=== PATIENT | male | born 1945 | race Caucasian/White ===

== ENCOUNTER 2023-03-15 09:01 | Day surgery (SDC) | payer MEDICARE, BC, SELFPAY ==
--- NOTE | ~2023-03-15 | FL_ITS ---
Fluoroscopic lumbar puncture Indication: Normal pressure hydrocephalus Risks and benefits and possible complications were discussed with the patient and the consent form was signed. Patient was placed prone on the fluoroscopy table. The back was prepped and draped in routine sterile fashion. Betadine was used as a skin antiseptic. Utilizing fluoroscopic guidance, the L3-4 level was accessed with a 22 gauge Celine spinal needle and clear CSF fluid obtained. Opening pressure was 27 cm H2O cm. 12 cc of fluid was sent for analysis. Closing pressure was 13 cm H2O. The needle was removed without immediate complications. Total fluoroscopy time: 9 seconds min FL/FL guided lumbar puncture LP Impression: Fluoroscopic lumbar puncture This procedure was performed by Sanjiv Spring PA-C and supervised by Dr. Small.
[2023-03-15 09:27] VITALS: BP 197/101; PULSE 75; RESP 16; TEMP 36.7; O2SAT 93; BMI 28.1
[2023-03-15 09:45] LABS: MANUAL DIFF FLAG NO
[2023-03-15 09:51] LABS: Basophils Percent Auto 0.2 % (0-2); Eosinophils Absolute Auto 0.1 X10*3/uL (0.0-0.4); Eosinophils Percent Auto 0.5 % (0-4); Hematocrit 54.3 % (42.0-52.0); Hemoglobin 18.2 g/dl (14.0-18.0); Imm Gran Abs Auto 0.02 X10*3/uL (0.00-0.03); Imm Gran Pct Auto 0.2 % (0.0-0.4); Lymphocytes Absolute Auto 1.2 X10*3/uL (1.2-4.9); Lymphocytes Percent Auto 12.1 % (20-40); Mean Corpuscular HGB Conc 33.5 g/dl (31.0-36.0); Mean Corpuscular Hemoglobin 29.8 pg (27.0-33.0); Mean Corpuscular Volume 88.9 fL (80.0-98.0); Monocytes Absolute Auto 0.6 X10*3/uL (0.1-1.2); Monocytes Percent Auto 6.2 % (2-11); Neutrophils Percent Auto 80.8 % (45-73); Platelet Count 308 X10*3/uL (160-400); Red Blood Count 6.11 X10*6/uL (4.60-5.80); Red Cell Distribution Width 12.5 % (11.0-16.0); White Blood Count 9.9 X10*3/uL (4.8-10.8)
[2023-03-15 10:03] LABS: Prothrombin Time 11.9 SEC (11.1-13.3)
[2023-03-15 10:06] LABS: Partial Thromboplastin Time 30.5 SEC (26.0-36.4)
[2023-03-15 11:50] VITALS: BP 210/101; PULSE 68; RESP 18; TEMP 37.2; O2SAT 94
[2023-03-15 12:10] VITALS: BP 202/103; PULSE 71; RESP 17; O2SAT 93
[2023-03-15 12:25] VITALS: BP 202/102; PULSE 69; RESP 17; O2SAT 94
[2023-03-15 12:28] LABS: CSF Appearance Clear, Colorless; CSF Tube # 1
[2023-03-15 12:38] LABS: Glucose CSF 66 mg/dL; Total Protein CSF 55.7 mg/dL (15-45)
[2023-03-15 12:40] VITALS: BP 201/97; PULSE 69; RESP 17; O2SAT 94
[2023-03-15 13:12] VITALS: BP 184/92; PULSE 66; RESP 18; TEMP 37.3; O2SAT 94
[2023-03-15 13:22] LABS: Appearance CSF CLEAR; CSF Tube # 4; Color CSF COLORLESS; White Blood Cell CSF 2 MM*3
[2023-03-15 13:25] LABS: CSF Monos 44 %; Lymphocytes CSF 56 %; Red Blood Cell CSF 0 MM*3
== END 2023-03-15 13:17 | disposition home or self-care (01) ==
PROVIDERS: Physician Assistant Surgical; PCP Physician Assistant Medical; Visit Provider Psychiatry & Neurology Neurology
PROC: 009U3ZZ Drainage of Spinal Canal, Percutaneous Approach (ICD-10-PCS; CPT 62270; principal; 2023-03-15 11:00)
DX: G91.2 (Idiopathic) normal pressure hydrocephalus (principal); G93.89 Other specified disorders of brain; G82.20 Paraplegia, unspecified; F03.90 Unspecified dementia, unspecified severity, without behavioral disturbance, psychotic disturbance, mood disturbance, and anxiety; R26.9 Unspecified abnormalities of gait and mobility; R29.2 Abnormal reflex; C61 Malignant neoplasm of prostate; M48.54XA Collapsed vertebra, not elsewhere classified, thoracic region, initial encounter for fracture; M47.812 Spondylosis without myelopathy or radiculopathy, cervical region; M48.07 Spinal stenosis, lumbosacral region; I10 Essential (primary) hypertension; E78.5 Hyperlipidemia, unspecified; K21.9 Gastro-esophageal reflux disease without esophagitis; Z79.899 Other long term (current) drug therapy
CPT/HCPCS: 36415; 62328; 82945; 84157; 85025; 85610; 85730; 87015; 87070; 87205; 89051

== ENCOUNTER → 2023-03-15 10:56 | Outpatient (BNV) | payer MEDICARE, BC, SELFPAY | PROVIDERS: PCP Physician Assistant Medical; Visit Provider Radiology Diagnostic Radiology | DX: G91.2 (Idiopathic) normal pressure hydrocephalus (principal) | CPT/HCPCS: 62328 ==